=== PATIENT | male | born 1965 | race Caucasian/White ===

== ENCOUNTER 2020-07-04 06:48 | Inpatient (IN) | payer MEDICARE, MEDICAID ==
[~2020-07-04] VITALS: Ht 167.6 cm; Wt 57.3 kg
[2020-07-04] MEDS ORDERED: SODIUM CHLORIDE 0.9% 1,000 ML IV ONE ×2 (07:15→08:00)
[2020-07-04] MEDS ORDERED: LORAZEPAM 2MG/ML CPJ IV ONE (08:00)
[2020-07-04] MEDS ORDERED: LEVETIRACETAM 1000MG PREMIX 100 ML IV ONE (08:00)
[2020-07-04 08:05] LABS: HEMATOCRIT. 38.9 % (42.0-52.0); HEMOGLOBIN. 13.1 g/dL (14.0-18.0); MEAN CORPUSCULAR HEMOGLOBIN 31.5 pg (28.0-32.0); MEAN CORPUSCULAR VOLUME 93.3 fL (80.0-94.0); MEAN PLATELET VOLUME 8.7 fl (7.4-10.4); PLATELET 304 x1000/uL (130-400); RED BLOOD CELL COUNT 4.17 mill/uL (4.7-6.1); RED CELL DISTRIBUTION WIDTH 13.9 % (11.6-14.6)
[2020-07-04 08:06] LABS: CHLORIDE 99 mEq/L (98-107)
[2020-07-04 08:09] LABS: ETHANOL BLOOD < 10 mg/dL
[2020-07-04 08:28] LABS: CARBAMAZEPINE < 0.5 ug/mL (4-12); PHENOBARBITAL < 2.1 ug/mL (15.0-40.0); VALPROIC ACID < 3.0 ug/mL (50-100)
[2020-07-04 08:32] LABS: PLATELET ESTIMATE NORMAL
[2020-07-04] MEDS ORDERED: MAGNESIUM 2 G PREMIX 50 ML IV ONE (08:45)
[2020-07-04] MEDS ORDERED: KCL 20MEQ/100ML PREMIX 100 ML IV ONE (08:45)
[2020-07-04 09:52] LABS: BG BASE EXCESS -1.8 mmol/L (-2.0-2.0); BG CARBOXYHEMOGLOBIN 1.9 % (0.5-1.5); BG DEOXYHEMOGLOBIN 3.7 % (0.0-5.0); BG FRACTION INSPIRED OXYGEN 21; BG HCO3 ACT 21.4 mmol/L (22.0-26.0); BG METHEMOGLOBIN 0.2 % (0.0-1.5); BG OXYGEN SATURATION 96.2 % (92.0-98.5); BG OXYHEMOGLOBIN 94.2 % (94.0-97.0); BG PCO2 31.9 mmHg (35.0-45.0); BG PH 7.445 (7.350-7.450); BG SAMPLE SITE RIGHT FEMORAL; BG TOTAL HEMOGLOBIN 12.8 g/dL (12.0-18.0); BG VENT MODE ROOM AIR
[2020-07-04] MEDS ORDERED: ACETAMINOPHEN 325MG TABLET PO PRN (10:15)
[2020-07-04] MEDS ORDERED: CLONIDINE 0.1MG TABLET PO PRN (10:15)
[2020-07-04] MEDS ORDERED: ONDANSETRON HCL 4MG/2ML INJ IV PRN (10:15)
[2020-07-04] MEDS: AMLODIPINE 10MG TABLET PO SCH (10:15)
[2020-07-04] MEDS ORDERED: HYDRALAZINE 20MG/ML VIAL IV PRN (10:15)
[2020-07-04 11:45] VITALS: BP 130/76
[2020-07-04 13:49] VITALS: BP 130/76
[2020-07-04 15:30] VITALS: BP 108/71
[2020-07-04] MEDS ORDERED: ACETAMINOPHEN 650MG SUPP PR PRN (16:45)
[2020-07-04 19:00] LABS: CLARITY URINE CLEAR (CLEAR); COLOR URINE YELLOW (YELLOW); KETONES URINE 1+ (NEGATIVE); LEUKOCYTE ESTERASE URINE NEGATIVE (NEGATIVE); NITRITE URINE NEGATIVE (NEGATIVE); OCCULT BLOOD URINE NEGATIVE (NEGATIVE); PROTEIN URINE NEGATIVE (NEGATIVE); SPECIFIC GRAVITY URINE 1.021 (1.005-1.030); UROBILINOGEN URINE 0.2 E.U./dL (0.2-1.0)
[2020-07-04 19:12] LABS: *AMPHETAMINES SCREEN URINE NEGATIVE (NEGATIVE); CANNABINOID URINE SCREEN NEGATIVE (NEGATIVE); METHADONE URINE SCREEN NEGATIVE (NEGATIVE); OPIATES URINE SCREEN NEGATIVE (NEGATIVE); PHENCYCLIDINE URINE SCREEN NEGATIVE (NEGATIVE)
[2020-07-04 19:13] LABS: *BARBITURATES SCREEN URINE NEGATIVE (NEGATIVE); *COCAINE SCREEN URINE NEGATIVE (NEGATIVE)
[2020-07-04 19:14] LABS: *BENZODIAZEPINES SCREEN URINE NEGATIVE (NEGATIVE)
[2020-07-04 20:00] VITALS: BP 108/62
[2020-07-04] MEDS ORDERED: LEVETIRACETAM 500MG PREMIX 100 ML IV SCH (21:00)
[2020-07-04] MEDS: LEVETIRACETAM 500MG PREMIX 100 ML IV SCH (21:45)
[2020-07-05] VITALS: BP 101/74
[2020-07-05 04:00] VITALS: BP 102/70
[2020-07-05 07:09] LABS: CHLORIDE 103 mEq/L (98-107)
[2020-07-05 07:36] LABS: HEMATOCRIT. 34.6 % (42.0-52.0); MEAN CORPUSCULAR HEMOGLOBIN 31.8 pg (28.0-32.0); MEAN CORPUSCULAR VOLUME 91.4 fL (80.0-94.0); MEAN PLATELET VOLUME 7.9 fl (7.4-10.4); PLATELET 269 x1000/uL (130-400); RED BLOOD CELL COUNT 3.78 mill/uL (4.7-6.1); RED CELL DISTRIBUTION WIDTH 13.7 % (11.6-14.6)
[2020-07-05 08:00] VITALS: BP 103/63
[2020-07-05] MEDS: LEVETIRACETAM 500MG PREMIX 100 ML IV SCH ×2 (08:55→20:25)
[2020-07-05] MEDS: AMLODIPINE 10MG TABLET PO SCH (08:55)
[2020-07-05 12:00] VITALS: BP 104/64
[2020-07-05 16:00] VITALS: BP 101/60
[2020-07-05 19:32] LABS: VITAMIN B12 SERUM 866 pg/mL (211-911)
[2020-07-05 20:00] VITALS: BP 100/48
[2020-07-05 23:34] LABS: PLATELET ESTIMATE NORMAL
[2020-07-06 04:00] VITALS: BP 117/51
[2020-07-06] MEDS: LEVETIRACETAM 500MG PREMIX 100 ML IV SCH ×2 (08:30→20:58)
[2020-07-06] MEDS: AMLODIPINE 10MG TABLET PO SCH (08:40)
[2020-07-06] MEDS: HALOPERIDOL LACTATE 5MG/ML VIAL IM PRN ×2 (09:41→19:55)
[2020-07-06 12:00] VITALS: BP 96/57
[2020-07-06] MEDS: LORAZEPAM 2MG/ML CPJ IV PRN (15:30)
[2020-07-06 16:00] VITALS: BP 102/67
[2020-07-06 20:00] VITALS: BP 102/63
[2020-07-07] VITALS: BP 104/69
[2020-07-07] MEDS: LORAZEPAM 2MG/ML CPJ IV PRN ×2 (02:01→14:34)
[2020-07-07 04:00] VITALS: BP 110/70
[2020-07-07 08:00] VITALS: BP 106/65
[2020-07-07] MEDS: AMLODIPINE 10MG TABLET PO SCH (08:49)
[2020-07-07] MEDS: LEVETIRACETAM 500MG PREMIX 100 ML IV SCH (08:56)
[2020-07-07 09:49] LABS: HEMATOCRIT 37.9 % (42.0-52.0); HEMOGLOBIN 12.8 g/dL (14.0-18.0); MEAN CORPUSCULAR HEMOGLOBIN 31.1 pg (28.0-32.0); MEAN CORPUSCULAR VOLUME 92.5 fL (80.0-94.0); PLATELET 360 x1000/uL (130-400); RED CELL DISTRIBUTION WIDTH 13.7 % (11.6-14.6)
[2020-07-07 10:06] LABS: CHLORIDE 104 mEq/L (98-107)
[2020-07-07 10:15] LABS: T4 FREE 1.15 ng/dL (0.76-1.46)
[2020-07-07 11:36] LABS: HEPATITIS B SURFACE ANTIGEN NEGATIVE
[2020-07-07 11:55] VITALS: BP 118/77
[2020-07-07 12:06] LABS: HEPATITIS A AB IGM NEGATIVE (NEGATIVE)
[2020-07-07 16:03] VITALS: BP 106/60
[2020-07-08 05:08] LABS: HIV SCREEN 4G Non Reactive (Non Reactive)
== END 2020-07-07 16:00 | disposition left against medical advice (07) | DRG 100 ==
LOC: ER 06:55 → EDBD 09:19 → 5WST 09:19 → EDBEDREQ 09:24 → EDBEDREQTM 09:24 → ENRESERV 10:10
PROVIDERS: ADMIT Internal Medicine; ATTEND Internal Medicine
DX: G40.909 Epilepsy, unspecified, not intractable, without status epilepticus (principal); R65.11 Systemic inflammatory response syndrome (SIRS) of non-infectious origin with acute organ dysfunction; G93.41 Metabolic encephalopathy; E87.1 Hypo-osmolality and hyponatremia; I10 Essential (primary) hypertension; E86.0 Dehydration; E87.6 Hypokalemia; R74.01 Elevation of levels of liver transaminase levels; D72.825 Bandemia; R73.9 Hyperglycemia, unspecified; Z78.1 Physical restraint status; F99 Mental disorder, not otherwise specified
CPT/HCPCS: 36415; 36600; 71045; 80048; 80053; 80156; 80165; 80184; 80185; 80305; 80307; 80320; 80329; 81003; 82306; 82375; 82533; 82607; 82805; 82962; 83036; 83605; 83735; 84100; 84439; 84443; 84481; 84484; 85025; 85027; 86705; 86709; 86803; 87340; 87389; 93005; 97161; 99291; J1630; J1953; J2060; J3475; J3480; J7030; G0480

== ENCOUNTER 2020-07-18 16:00 | Inpatient (IN) | payer MEDICARE, MEDICAID ==
[~2020-07-18] VITALS: Ht 162.6 cm; Wt 55.3 kg
[2020-07-18 17:18] LABS: BASOPHILS % 0.9 % (0.0-2.0); EOSINOPHILS % 2.9 % (0.0-5.0); HEMOGLOBIN. 13.4 g/dL (14.0-18.0); MEAN CORPUSCULAR HEMOGLOBIN 31.4 pg (28.0-32.0); MEAN CORPUSCULAR VOLUME 91.4 fL (80.0-94.0); MEAN PLATELET VOLUME 7.5 fl (7.4-10.4); MONOCYTES % 9.6 % (2.0-8.0); NEUTROPHILS % 62.6 % (40.0-76.0); PLATELET 377 x1000/uL (130-400); RED BLOOD CELL COUNT 4.27 mill/uL (4.7-6.1); RED CELL DISTRIBUTION WIDTH 14.4 % (11.6-14.6)
[2020-07-18 17:21] LABS: CHLORIDE 92 mEq/L (98-107)
[2020-07-18 17:23] LABS: INR 0.9
[2020-07-18 17:26] LABS: ETHANOL BLOOD 202 mg/dL
[2020-07-18] MEDS ORDERED: GUAIFENESIN 200MG/10ML SUGAR FREE UDC PO PRN (19:30)
[2020-07-18] MEDS ORDERED: ACETAMINOPHEN 650MG SUPP PR PRN ×2 (19:30)
[2020-07-18] MEDS ORDERED: ACETAMINOPHEN 650MG/20.3ML UDC GT PRN ×2 (19:30)
[2020-07-18] MEDS ORDERED: ACETAMINOPHEN 325MG TABLET PO PRN ×2 (19:30)
[2020-07-18] MEDS ORDERED: ONDANSETRON HCL 4MG/2ML INJ IV PRN (19:30)
[2020-07-18] MEDS ORDERED: DOCUSATE SODIUM 100MG CAPSULE PO PRN (19:30)
[2020-07-18] MEDS: DEXT 5%/0.45% NACL 1000ML 1,000 ML IV SCH (19:53)
[2020-07-18] MEDS: THIAMINE HCL 100MG TABLET PO SCH (19:53)
[2020-07-18] MEDS ORDERED: CEFTRIAXONE 1 G PREMIX 50 ML IV SCH (20:00)
[2020-07-18 20:26] LABS: T4 FREE 1.01 ng/dL (0.76-1.46)
[2020-07-18 22:02] LABS: CLARITY URINE CLEAR (CLEAR); COLOR URINE YELLOW (YELLOW); KETONES URINE NEGATIVE (NEGATIVE); LEUKOCYTE ESTERASE URINE NEGATIVE (NEGATIVE); NITRITE URINE NEGATIVE (NEGATIVE); OCCULT BLOOD URINE NEGATIVE (NEGATIVE); PH URINE 5.5 (4.5-8.0); PROTEIN URINE NEGATIVE (NEGATIVE); SPECIFIC GRAVITY URINE 1.004 (1.005-1.030); UROBILINOGEN URINE 0.2 E.U./dL (0.2-1.0)
[2020-07-18 22:26] LABS: *AMPHETAMINES SCREEN URINE NEGATIVE (NEGATIVE); *BARBITURATES SCREEN URINE NEGATIVE (NEGATIVE); *BENZODIAZEPINES SCREEN URINE NEGATIVE (NEGATIVE); *COCAINE SCREEN URINE NEGATIVE (NEGATIVE); METHADONE URINE SCREEN NEGATIVE (NEGATIVE); OPIATES URINE SCREEN NEGATIVE (NEGATIVE); PHENCYCLIDINE URINE SCREEN NEGATIVE (NEGATIVE)
[2020-07-18 22:27] LABS: CANNABINOID URINE SCREEN NEGATIVE (NEGATIVE)
[2020-07-18 23:00] VITALS: BP 105/70
[2020-07-19 00:02] VITALS: BP 105/70
[2020-07-19 04:00] VITALS: BP 115/68
[2020-07-19 06:16] LABS: BASOPHILS % 0.9 % (0.0-2.0); HEMATOCRIT. 36.5 % (42.0-52.0); HEMOGLOBIN. 12.6 g/dL (14.0-18.0); LYMPHOCYTES % 28.3 % (20.0-50.0); MEAN CORPUSCULAR HEMOGLOBIN 31.7 pg (28.0-32.0); MEAN CORPUSCULAR VOLUME 91.8 fL (80.0-94.0); MEAN PLATELET VOLUME 7.6 fl (7.4-10.4); MONOCYTES % 13.7 % (2.0-8.0); NEUTROPHILS % 53.1 % (40.0-76.0); PLATELET 389 x1000/uL (130-400); RED BLOOD CELL COUNT 3.98 mill/uL (4.7-6.1); RED CELL DISTRIBUTION WIDTH 14.4 % (11.6-14.6)
[2020-07-19 06:18] LABS: CHLORIDE 97 mEq/L (98-107)
[2020-07-19 06:38] LABS: LDL CHOLESTEROL 54 mg/dL (5-100)
[2020-07-19 06:43] LABS: HDL CHOLESTEROL 74 mg/dL (40-59)
[2020-07-19 08:00] VITALS: BP 126/75
[2020-07-19] MEDS: FOLIC ACID 1MG TABLET PO SCH (08:46)
[2020-07-19] MEDS: THIAMINE HCL 100MG TABLET PO SCH (08:46)
[2020-07-19] MEDS: DEXT 5%/0.45% NACL 1000ML 1,000 ML IV SCH ×2 (08:48→22:15)
[2020-07-19 11:51] LABS: CHLORIDE 98 mEq/L (98-107)
[2020-07-19 12:30] VITALS: BP 122/68
[2020-07-19 16:02] VITALS: BP 120/63
[2020-07-19] MEDS ORDERED: CEFTRIAXONE 1,000 MG in DEXTROSE 5% WATER 50 ML IV SCH (20:00)
[2020-07-20 04:00] VITALS: BP 100/57
[2020-07-20 08:00] VITALS: BP 112/58
[2020-07-20] MEDS: FOLIC ACID 1MG TABLET PO SCH (08:19)
[2020-07-20] MEDS: THIAMINE HCL 100MG TABLET PO SCH (08:19)
== END 2020-07-20 10:00 | disposition left against medical advice (07) | DRG 56 ==
LOC: ER 16:00 → 8WST 18:45 → ENRESERV 21:00
PROVIDERS: ADMIT Family Medicine; ATTEND Family Medicine
DX: G31.2 Degeneration of nervous system due to alcohol (principal); G92 Toxic encephalopathy; E87.1 Hypo-osmolality and hyponatremia; E05.90 Thyrotoxicosis, unspecified without thyrotoxic crisis or storm; D64.9 Anemia, unspecified; E83.51 Hypocalcemia; E87.6 Hypokalemia; F10.129 Alcohol abuse with intoxication, unspecified; G40.909 Epilepsy, unspecified, not intractable, without status epilepticus; Z53.29 Procedure and treatment not carried out because of patient's decision for other reasons; Z59.0 Homelessness; F17.200 Nicotine dependence, unspecified, uncomplicated
CPT/HCPCS: 36415; 80048; 80053; 80061; 80076; 80305; 80307; 80320; 80329; 81003; 82140; 83605; 83880; 83930; 84439; 84443; 84481; 85025; 86592; 97161; 97165; 99285; J0696; J7060; G0480

== ENCOUNTER 2020-07-20 18:45 | Emergency (ER) | payer MEDICARE, MEDICAID ==
[~2020-07-20] VITALS: Ht 172.7 cm; Wt 70.0 kg
[2020-07-20 20:54] VITALS: BP 108/71
== END 2020-07-20 21:26 | disposition home or self-care (01) ==
LOC: ER 18:45
DX: M79.18 Myalgia, other site (principal); Z59.0 Homelessness; F17.290 Nicotine dependence, other tobacco product, uncomplicated
CPT/HCPCS: 93005; 99283

== ENCOUNTER 2020-07-21 01:28 | Emergency (ER) | payer MEDICARE, MEDICAID ==
[~2020-07-21] VITALS: Ht 165.1 cm; Wt 68.1 kg
[2020-07-21 03:22] LABS: BASOPHILS % 0.3 % (0.0-2.0); EOSINOPHILS % 2.4 % (0.0-5.0); HEMATOCRIT. 37.8 % (42.0-52.0); HEMOGLOBIN. 12.9 g/dL (14.0-18.0); LYMPHOCYTES % 21.9 % (20.0-50.0); MEAN CORPUSCULAR HEMOGLOBIN 31.8 pg (28.0-32.0); MEAN CORPUSCULAR VOLUME 92.9 fL (80.0-94.0); MEAN PLATELET VOLUME 7.4 fl (7.4-10.4); MONOCYTES % 11.8 % (2.0-8.0); NEUTROPHILS % 63.6 % (40.0-76.0); PLATELET 329 x1000/uL (130-400); RED BLOOD CELL COUNT 4.07 mill/uL (4.7-6.1); RED CELL DISTRIBUTION WIDTH 14.2 % (11.6-14.6)
[2020-07-21 03:25] LABS: CHLORIDE 102 mEq/L (98-107)
[2020-07-21 03:29] LABS: ETHANOL BLOOD 85 mg/dL
[2020-07-21 05:37] VITALS: BP 34/77
== END 2020-07-21 05:39 | disposition home or self-care (01) ==
LOC: ER 01:28
DX: R45.851 Suicidal ideations (principal); R53.1 Weakness; F10.10 Alcohol abuse, uncomplicated; Y90.4 Blood alcohol level of 80-99 mg/100 ml
CPT/HCPCS: 36415; 80053; 80307; 80320; 80329; 85025; 99283; G0480

== ENCOUNTER 2020-07-21 20:01 | Emergency (ER) | payer MEDICARE, MEDICAID ==
[~2020-07-21] VITALS: Ht 175.3 cm; Wt 69.0 kg
[2020-07-21 20:05] VITALS: BP 127/80
[2020-07-21] MEDS ORDERED: ACETAMINOPHEN 325MG TABLET PO ONE (20:15)
== END 2020-07-21 20:35 | disposition home or self-care (01) ==
LOC: ER 20:01
DX: M79.672 Pain in left foot (principal); M79.671 Pain in right foot; R46.0 Very low level of personal hygiene
CPT/HCPCS: 99283